=== PATIENT | male | born 1975 | race Caucasian/White ===

== ENCOUNTER 2018-08-15 11:32 | Emergency (ER) | payer BC ==
[2018-08-15] MEDS ORDERED: Nitroglycerin 2% Ointment 1 INCH/1 GM Packet ONE (11:45)
[2018-08-15] MEDS ORDERED: Aspirin Chewable 81 MG TAB ONE (11:45)
[2018-08-15 12:20] LABS: #Basophils 0.1 thou/uL (0.0-0.2); #Lymphocytes 1.4 thou/uL (1.20-3.40); #Monocytes 0.5 thou/uL (0.11-0.59); #Neutrophils 9.1 thou/uL (1.40-6.50); %Basophils 0.7 % (0.0-1.0); %Eosinophils 0.3 % (0.0-10.0); %Lymphocytes 12.5 % (21.0-51.0); %Monocytes 4.7 % (0.0-10.0); %Neutrophils 81.9 % (42.0-75.0); Hemoglobin 15.7 g/dL (14.0-18.0); Mean Corpuscular Hemoglobin 30.2 pg (27.0-31.0); Mean Corpuscular Volume 91.7 fL (78.0-98.0); Mean Platelet Volume 7.3 fL (7.4-10.4); Platelet Count 222 thou/uL (130-400); RBC Distribution Width 12.4 % (11.5-14.5); White Blood Cell (WBC) Count 11.2 thou/uL (4.8-10.8)
[2018-08-15 12:34] LABS: ALT (SGPT) 35 U/L (8-55); AST (SGOT) 21 U/L (5-34); Albumin 3.9 g/dL (3.5-5.0); Alkaline Phosphatase 60 U/L (40-150); Anion Gap 14 mmol/L (10-20); BUN (Urea Nitrogen) 25 mg/dL (8.9-20.6); Bilirubin, Total 0.3 mg/dL (0.2-1.2); Calc. Creatinine Clearance 0 mL/min (70-130); Carbon Dioxide 24 mmol/L (22-29); Chloride 104 mmol/L (98-107); Estimated GFR-MDRD 75; Globulin 3.1 g/dL (2.4-3.5); Glucose 151 mg/dL (70-105); Potassium 4.8 mmol/L (3.5-5.1); Sodium 137 mmol/L (136-145)
--- NOTE | 2018-08-15 13:28 | CT ---
CTA CHEST WITH CONTRAST: Date: 08/15/18 Multiple axial tomograms obtained through chest following angio protocol with multiplanar reconstruct ion and 3D postprocessing. INDICATION: Chest pain. History of deep venous thrombosis. FINDINGS: Pulmonary arteries show adequate opacification. There is no evidence of pulmonary embolus identified. The lung clinton appear clear. No infiltrate or effusion identified. The mediastinum is unremarkable. There is a low density mass involving the inferior right lobe of the thyroid which extends substernal , measuring 2.8-3.0 cm AP dimension. Recommend dedicated thyroid ultrasound to further evaluate. Images through upper abdomen are unremarkable. The thoracic aorta is unremarkable with no evidence of dissection. IMPRESSION: 1. No evidence of pulmonary embolus. 2. No acute lung process. 3. Low density mass extending from the inferior right lobe of the thyroid extending substernal. Delfino mmend further evaluation with thyroid ultrasound. POS: OFF
[2018-08-15 14:32] LABS: Troponin I Less than 0.010 ng/mL (< 0.028)
== END 2018-08-15 14:53 | disposition home or self-care (01) ==
LOC: SCSER 11:32
DX: R07.89 Other chest pain (principal); I25.10 Atherosclerotic heart disease of native coronary artery without angina pectoris; K21.9 Gastro-esophageal reflux disease without esophagitis; E78.5 Hyperlipidemia, unspecified; I10 Essential (primary) hypertension; Z86.718 Personal history of other venous thrombosis and embolism; F41.0 Panic disorder [episodic paroxysmal anxiety]; Z79.899 Other long term (current) drug therapy
CPT/HCPCS: 71275; 80053; 83880; 84484; 85025; 93005